=== PATIENT | female | born 1950 | race Caucasian/White ===

== ENCOUNTER → 2018-07-03 | Day surgery (SDC) | payer MEDICARE, OTHER ==
[~2018-07-03] MED LIST: ALBUTEROL SULFATE 2.5 MG/3 ML NEBU. NEB PRN; ATROPINE 0.5 MG/5 ML DISP.SYRIN. IV PRN; LEVO100T5 PO; LIDOCAINE 2% PF Vial for OR 5 ML VIAL. ONE; NALOXONE 0.4 MG/ML VIAL. IV PRN; OMEP20TA63 PO; ONDANSETRON PF 4 MG/2 ML VIAL. IV PRN; PROPOFOL 10,000 MCG/ML (20ML) VIAL IV ONE; PROPOFOL 40 ML IV ONE; SIMV40TA3 PO; diphenhydrAMINE 50 MG/ML VIAL IV PRN
[2018-07-03] MEDS: IV RINGERS SOLUTION,LACTATED 1,000 ML IV SCH (10:34)
[2018-07-03 13:20] VITALS: BP 108/61
--- NOTE | 2018-07-07 15:10 | PATHOLOGY ---
[facility] Accession Number: [id number] . 01 Material submitted: . PART A: colon - ASCENDING COLON POLYP. Modifiers: ascending PART B: colon - TRANSVERSE COLON POLYPS. Modifiers: transverse PART C: colon - DESCENDING COLON POLYP. Modifiers: descending PART D: colon - SIGMOID COLON POLYPS . 01 Clinical history: . CRCS . 02 Diagnosis: A. Colon biopsy, ascending colon polyp: - Tubular adenoma. . B. Colon biopsies, transverse colon polyps: - Tubular adenomas (2). . C. Colon biopsies, descending colon polyp: - Tubular adenoma. . D. Colon biopsies, sigmoid colon polyps: - Tubular adenomas (2). (JPM:nan; 07/07/2018) QMS/07/07/2018 . 02 Comment: There is no high-grade dysplasia or evidence of malignancy. . 02 Electronically signed: . Raymond Bourgeois MD, Pathologist NPI- [id number] . 01 Gross description: . A. Received in formalin labeled "Hillebrand, Carla, ascending colon polyp," is a segment of pale montaño soft tissue measuring 0.7 x 0.3 x 0.3 cm in greatest dimensions. The specimen is submitted entirely in cassette A1. . B. Received in formalin labeled "Hillebrand, Carla, transverse colon polyps," are two segments of pale montaño soft tissue measuring 0.5 x 0.3 x 0.2 cm each in greatest dimensions admixed with yellow-brown vegetative material. The specimen is submitted entirely in cassette B1. . C. Received in formalin labeled "Hillebrand, Carla, descending colon polyp," are three segments of montaño-brown soft tissue ranging from 0.6 x 0.3 x 0.3 cm to 0.7 x 0.5 x 0.4 cm in greatest dimensions. The two larger segments are differentially inked and bisected, and the specimen is submitted entirely in cassette C1. . D. Received in formalin labeled "Hillebrand, Carla, sigmoid colon polyp," are two segments of montaño soft tissue measuring 0.3 x 0.2 x 0.2 cm and 0.7 x 0.3 x 0.3 cm admixed with orange-brown vegetative material. The specimen is submitted entirely in cassette D1. ([facility]; 07/06/2018) XDC/XDC . 02 Pathologist provided ICD-10: D12.2, D12.3, D12.4, D12.5 . 02 CPT . 466622, 595316, [id number], 501994 Specimen Comment: A courtesy copy of this report has been sent to Specimen Comment: [phone], . Specimen Comment: Report sent to / DR WATERMAN Performed at: 01 [facility] [address] [facility] [address], [place] [id number] MD Olivier Corrales MD Phone: [phone] Performed at: 02 [facility] [address] [place], [place] [id number] MD Raymond Bourgeois MD Phone: [phone]
== END | disposition home or self-care (01) ==
LOC: SURG 10:02
PROVIDERS: ATTEND Internal Medicine Gastroenterology
DX: Z12.11 Encounter for screening for malignant neoplasm of colon (principal); D12.2 Benign neoplasm of ascending colon; D12.3 Benign neoplasm of transverse colon; D12.4 Benign neoplasm of descending colon; D12.5 Benign neoplasm of sigmoid colon; K57.30 Diverticulosis of large intestine without perforation or abscess without bleeding; K21.9 Gastro-esophageal reflux disease without esophagitis; E03.9 Hypothyroidism, unspecified; Z86.010 Personal history of colon polyps; Z88.0 Allergy status to penicillin; Z79.899 Other long term (current) drug therapy; Z90.49 Acquired absence of other specified parts of digestive tract; Z98.890 Other specified postprocedural states
CPT/HCPCS: 45380; 45381; 45385; 88305; J2704; J7120; J2001

== ENCOUNTER → 2019-05-18 | Outpatient (CLI) | payer MEDICARE, OTHER ==
[2018-07-03 13:20] VITALS: BP 108/61
[~2019-05-18] MED LIST changes: -ALBUTEROL SULFATE 2.5 MG/3 ML NEBU. NEB PRN; -ATROPINE 0.5 MG/5 ML DISP.SYRIN. IV PRN; -LIDOCAINE 2% PF Vial for OR 5 ML VIAL. ONE; -NALOXONE 0.4 MG/ML VIAL. IV PRN; -ONDANSETRON PF 4 MG/2 ML VIAL. IV PRN; -PROPOFOL 10,000 MCG/ML (20ML) VIAL IV ONE; -PROPOFOL 40 ML IV ONE; +SIMV40TA18 PO; -SIMV40TA3 PO; -diphenhydrAMINE 50 MG/ML VIAL IV PRN
--- NOTE | 2019-05-18 15:54 | RAD ---
Indication: Postmenopausal screening for osteoporosis. COMPARISON: None available. Bone Density: -BMD: (g/cm2) - AP Spine Total (L1-L4).......... 1.270. - Total right Hip................. 0.922. Neck: 0.825 T-Score: - AP Spine Total (L1-L4)......... 0.8. - Total right Hip................. -0.3. Neck: -1.0 Z-Score: - AP Spine Total (L1-L4).......... 1.2. - Total right Hip................. 0.3. World Health Organization criteria for BMD interpretation classify patients as Normal (T-score at or above -1.0), Osteopenic (T-score between -1.0 and -2.5), or Osteoporotic (T-score at or below -2.5). Impression: 1. AP Spine Total L1-L4--- normal. 2. Total right Hip--- normal. Neck: Borderline normal. Electronically signed by: Johann Miranda MD (05/18/2019 3:51 PM) [facility] [place]
== END | disposition home or self-care (01) ==
LOC: DXRAD 10:05
PROVIDERS: ATTEND Specialist
DX: Z13.820 Encounter for screening for osteoporosis (principal); Z78.0 Asymptomatic menopausal state
CPT/HCPCS: 77080